=== PATIENT | male | born 1970 | race Caucasian/White ===

== ENCOUNTER 2017-03-23 20:38 | Emergency (ER) | payer MEDICARE, OTHER ==
[~2017-03-23] VITALS: Ht 182.9 cm; Wt 83.9 kg
[2017-03-23] MEDS ORDERED: TRAMADOL HCL50 MG PO (21:56)
== END 2017-03-23 22:03 | disposition home or self-care (01) ==
LOC: ED 20:38
DX: S90.31XA Contusion of right foot, initial encounter (principal); F17.200 Nicotine dependence, unspecified, uncomplicated; W22.8XXA Striking against or struck by other objects, initial encounter
CPT/HCPCS: 73630; 99283